=== PATIENT | female | born 1995 | race Hispanic/Latino ===

== ENCOUNTER 2019-02-16 08:42 | Emergency (ER) | payer SELFPAY ==
[~2019-02-16] VITALS: Ht 152.4 cm; Wt 88.5 kg
--- OUTSIDE RECORDS SUMMARY | 2019-02-16 08:44 | XMS REPORT ---
Author Author [facility] Address Unknown Phone Unavailable Care Team Providers Care Offset Label Rewinder Name Role Phone Unavailable Unavailable Payers Payer Name Policy Type Policy Number Effective Date Expiration Date Problems This patient has no known problems. Allergies, Adverse Reactions, Alerts Allergy Name Allergy Type Status Severity Reaction(s) Onset Date Inactive Date Treating Clinician Comments No Known Allergies DA Active U 2018-05-06 00:00:00 No Known Allergies DA Active U 2016-04-05 00:00:00 Medications This patient has no known medications.
[2019-02-16] MEDS ORDERED: KETOROLAC TROMETHAMINE 60 MG/2 ML VIAL IM ONE (09:00)
[2019-02-16] MEDS ORDERED: DIAZEPAM 5 MG TAB PO SCH ×2 (09:00)
[2019-02-16] MEDS ORDERED: DIAZEPAM 2 MG TAB PO ONE (09:00)
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
[2019-02-16 09:16] LABS: BILIRUBIN,URINE NEGATIVE (NEGATIVE); CLARITY,URINE CLOUDY (CLEAR); COLOR,URINE YELLOW (YELLOW); KETONES,URINE NEGATIVE (NEGATIVE); LEUKOCYTE ESTERASE ,URINE SMALL (NEGATIVE); NITRITE,URINE NEGATIVE (NEGATIVE); PROTEIN,URINE DIPSTICK NEGATIVE (NEGATIVE); URINE UROBILINOGEN 0.2 mg/dL (0.2 - 1)
[2019-02-16 09:39] LABS: PREGNANCY TEST, URINE NEGATIVE (NEGATIVE)
[2019-02-16 10:09] LABS: BACTERIA,URINE RARE /HPF; EPITHELIAL CELLS,URINE FEW /LPF
[2019-02-16 10:10] LABS: RBC,URINE 0-5 /HPF (0-5)
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
[2019-02-16] MEDS ORDERED: ROBAXIN-750750 MG PO (11:42)
[2019-02-16] MEDS ORDERED: MOTRIN200 MG PO (11:42)
--- NOTE | 2019-02-16 12:40 | NUR ---
DISCHARGE INSTRUCTIONS GIVEN TO PT AND FAMILY. F/U CARE DISCUSSED. PT VERB. UNDERSTANDING. DISCUSSED RESULTS AND DIAGNOSIS. PT DISCHARGING TO HOME WITH HER IN-LAWS.
[2019-02-16 14:31] VITALS: BP 103/73
== END 2019-02-16 12:44 | disposition home or self-care (01) ==
LOC: ER 08:42
DX: M54.2 Cervicalgia (principal); M54.5 Low back pain; S33.5XXA Sprain of ligaments of lumbar spine, initial encounter; R07.89 Other chest pain; V43.52XA Car driver injured in collision with other type car in traffic accident, initial encounter; Y92.488 Other paved roadways as the place of occurrence of the external cause
CPT/HCPCS: 71046; 72110; 81001; 81025; 99283; J1885